=== PATIENT | female | born 1990 | race Asian ===

== ENCOUNTER 2017-10-07 23:48 | Inpatient (IN) ==
[2017-10-08] MEDS ORDERED: RINGER'S SOLUTION,LACTATED 1,000 ML IV ONE (00:05)
[2017-10-08] MEDS ORDERED: BUTORPHANOL TARTRATE 2 MG/ML VIAL IV PRN (00:05)
[2017-10-08] MEDS ORDERED: DEXTROSE 5%-LACTATED RINGERS 1,000 ML IV PRN (00:05)
[2017-10-08] MEDS ORDERED: ONDANSETRON HCL/PF 2 MG/ML VIAL IV PRN ×2 (00:05→13:49)
[2017-10-08] MEDS ORDERED: MISOPROSTOL 100 MCG TABLET VG PRN (00:05)
[2017-10-08] MEDS ORDERED: OXYTOCIN/DEXTROSE 5%-WATER 30 UNITS/500 ML BAG IV ONE ×2 (00:05→23:08)
[2017-10-08] MEDS: RINGER'S SOLUTION,LACTATED 1,000 ML IV PRN ×2 (05:18→14:20)
--- NOTE | 2017-10-08 08:56 | PN ---
Progess Note - Interim Date: 10/08/17 Time: 08:52 Narrative: 10/08/17 08:53 Subjective-feeling contractions and rating them 3-5 on a scale of 10 Objective- SVE- 3/80/-2, cephalic, towards the patient's left FHTs- 140s, moderate variability, positive accelerations, no decelerations [place]- every 2-5 minutes Assessment and plan- Labor-induction due to cholestasis of GBS status-negative Continue current plan of care.
--- NOTE | 2017-10-08 12:46 | PN ---
Progess Note - Interim Date: 10/08/17 Time: 12:45 Narrative: 10/08/17 12:45 Subjective-feeling contractions and rating them 3-5 on a scale of 10 Objective- SVE- 4/80/-2, cephalic, AROM-clear FHTs- 130s, moderate variability, positive accelerations, no decelerations [place]- every 2-5 minutes, on pitocin Assessment and plan- Labor-induction due to cholestasis of GBS status-negative Continue current plan of care.
[2017-10-08] MEDS ORDERED: BUPIVACAINE HCL/0.9 % NACL/PF 250 ML EP PRN (13:49)
[2017-10-08] MEDS ORDERED: NALOXONE HCL 1 MG/1 ML SYRG IV PRN (13:49)
--- NOTE | 2017-10-08 13:56 | OR ---
Anesthesia Pre Procedure Eval Date of Service: 10/08/17 Pre Procedure Evaluation: Anesthesia Pre Procedure Evaluation Heart Rate: 54 Blood Pressure: 134/80 Temperature: 36.5C Respiratory Rate: 20 SaO2: 98 DATE: 10/08/2017 TIME: 1355 INDICATIONS: Active labor, labor pain PAST MEDICAL HISTORY: Primipara patient in active labor requesting labor analgesia History of GERD: No History of smoking:No History of sleep apnea:No EXAM: Heart regular; lungs clear ASSESSMENT OF MEDICAL STATUS: Appropriate candidate for labor analgesia PLANNED PROCEDURE: Combination spinal epidural for labor analgesia Home Medications: HOME MEDICATIONS Ferrous Sulfate [Iron] 325 mg PO DAILY 10/08/17 [Last Taken 10/07/17] Vits96/Iron Fum/Folic [ S] 1 tab PO DAILY 10/08/17 [Last Taken 10/07/17 1 tab] Ursodiol [Actigall] 300 mg PO BID 10/08/17 [Last Taken 10/07/17 23:00]
[2017-10-08] MEDS ORDERED: fentaNYL CITRATE/PF 50 MCG/ML AMPUL IT SCH (14:00)
--- NOTE | 2017-10-08 14:18 | OR ---
Anesthesia Procedure Note - Anesthesia Procedure Note Date of Service: 10/08/17 Narrative: 10/08/17 14:17 ANESTHESIA PROCEDURE NOTE Date of Procedure: 10/08/2017 Time of procedure: 1355. Performed by: DENNIS Gomes CRNA, MSN Retirement Administrator: Katarina Cr RN. Preprocedure diagnosis: Active labor, labor pain. Post procedure diagnosis: Same. Procedure:Epidural for labor analgesia L3 4. Indications: Labor pain. Findings: See below. Details of the procedure: The patient was placed on the side of the bed in sitting positionand prepped with DuraPrep then draped in a sterile fashion. Lidocaine 1% was infiltrated to the skin and subcutaneous tissues at the level of the L3 4 interspace. An 18-gauge Touhy needle was used to approach the epidural space with loss of resistance technique. Once loss of resistance was achieved a 27-gauge spinal needle was passed through the epidural needle and CSF was contacted. After CSF returned, 20 mcg of fentanyl was injected in the spinal needle was removed the epidural catheter was then threaded approximately 4 cm in the epidural needle was removed. The catheter was taped in place and after careful aspiration 3 mL of 1.5% lidocaine with 1-200,000 epinephrine was injected without change in maternal heart rate or sensorium. . EBL: Minimal. Fluids: N/A. Specimen: N/A. Post procedure condition: The patient tolerated the procedure well with good relief. No complications were noted. Thank you for this consultation. Ramirez Irvin CRNA, ARNP, MSN
[2017-10-08] MEDS ORDERED: GLYCERIN/WITCH HAZEL LEAF 40 APPL BOX TP PRN (23:08)
[2017-10-08] MEDS ORDERED: BENZOCAINE/MENTHOL 81 SPRAY CAN TP PRN (23:08)
[2017-10-08] MEDS ORDERED: SENNOSIDES 8.6 MG TABLET PO PRN (23:08)
[2017-10-08] MEDS ORDERED: HYDROCORTISONE 30 APPL TUBE TP PRN (23:08)
[2017-10-08] MEDS ORDERED: BISACODYL 10 MG SUPP.RECT RC PRN (23:08)
[2017-10-08] MEDS ORDERED: oxyCODONE HCL/ACETAMINOPHEN 1 TAB TABLET PO PRN (23:08)
--- NOTE | 2017-10-08 23:11 | OR ---
Operative Report - Dictated Report Narrative: Spontaneous Vaginal Delivery Viable male with APGARS of 8 at 1 minute and 9 at 5 minutes. He delivered at 2251. Presentation was NAVNE[place]. A loose nuchal cord was noted around the neck and around the body. After delivery of the head the baby delivered easily without time to reduce the cord. Spontaneous cry was noted immediately. The baby was dried and the cord was clamped and cut after approximately 60 seconds. Weight: 5 pounds 6.2 ounces or 2444 g Placenta was delivered spontaneously and intact. First-degree vaginal laceration was noted and repaired with 2-0 Vicryl. Marked labial swelling was noted and bilateral periurethral lacerations were noted to be hemostatic. Estimated blood loss: 100 ml Mother and baby tolerated delivery well. History for Definition: * The number of deliveries resulting in a live the patient experienced prior to current hospitalization * The previous delivery of live twins or any live multiple gestation is considered one live event. *If primagravida or nulliparous is documented select zero for the number of previous live births. Live Events: 0
[2017-10-09] MEDS: IBUPROFEN 800 MG TABLET PO PRN ×2 (00:57→12:35)
[2017-10-09] MEDS: oxyCODONE HCL/ACETAMINOPHEN 1 TAB TABLET PO PRN ×4 (01:29→16:20)
[2017-10-09] MEDS ORDERED: diphenhydrAMINE HCL 25 MG CAPSULE PO PRN (03:09)
[2017-10-09] MEDS ORDERED: HYDROmorphone HCL 2 MG/ML VIAL IV ONE ×3 (03:10→19:20)
[2017-10-09] MEDS ORDERED: HYDROmorphone HCL 2 MG/ML VIAL ONE (05:01)
[2017-10-09] MEDS ORDERED: LIDOCAINE HCL 10 APPL CARTRIDGE ONE (05:50)
[2017-10-09] MEDS ORDERED: LIDOCAINE HCL 10 APPL CARTRIDGE TP ONE (05:53)
[2017-10-09] MEDS ORDERED: DOCUSATE SODIUM 100 MG CAPSULE PO SCH (09:00)
[2017-10-09] MEDS ORDERED: RINGER'S SOLUTION,LACTATED 1,000 ML IV ONE (09:13)
[2017-10-09 09:38] LABS: Hematocrit 25.5 % (37.0-47.0); Hemoglobin 8.7 gm/dL (12.5-16.0); Mean Cell Volume 93.8 fl (78-100); Mean Corpuscular Hgb Conc 34.1 g/dl (32-36); Mean Platelet Volume 12.3 fl (6.0-9.5); Neutrophil # 18.8 K/mm3 (1.3-6.0); Neutrophil % 84.2 % (42-75.0); Platelet Count 188 K/mm3 (150-450); Red Blood Count 2.72 M/mm3 (4.2-5.4); Red Cell Distribution Width 13.1 % (11.5-14.0); White Blood Count 22.4 K/mm3 (4.0-10.5)
--- NOTE | 2017-10-09 09:46 | PN ---
Progess Note - Interim Date: 10/09/17 Time: 08:30 Narrative: 10/09/17 09:37 Pt c/o severe rectal and buttock pain since delivery. She c/o pain 01/03. She has been up once but unable to void. Minimal bleeding. Some labial swelling. Lightheaded with ambulation. VSS Fundus firm left labia moderately swollen left buttock firm, swollen, probable hematoma, tender to touch A/P: Large hematoma-cont. to monitor, if cont. to expand, then will image. CBC and fluids. Pain control adjusted. Cont. to monitor closely. min. lochea
[2017-10-09] MEDS ORDERED: RINGER'S SOLUTION,LACTATED 1,000 ML IV PRN ×2 (13:29→19:17)
[2017-10-09 14:15] LABS: Mean Cell Volume 92.5 fl (78-100); Mean Corpuscular Hemoglobin 31.8 pg (27-31); Mean Corpuscular Hgb Conc 34.4 g/dl (32-36); Mean Platelet Volume 12.7 fl (6.0-9.5); Platelet Count 195 K/mm3 (150-450); Red Blood Count 2.39 M/mm3 (4.2-5.4); Red Cell Distribution Width 12.9 % (11.5-14.0); White Blood Count 24.2 K/mm3 (4.0-10.5)
[2017-10-09] MEDS ORDERED: HYDROmorphone HCL 2 MG TABLET PO PRN (15:17)
[2017-10-09 15:22] LABS: Hematocrit 22.1 % (37.0-47.0); Hemoglobin 7.6 gm/dL (12.5-16.0)
[2017-10-09 15:23] LABS: Total Cells Counted 100
[2017-10-09 15:26] LABS: Lymphocyte 12 % (20-51); Monocyte 5 % (0-9); Neutrophil 83 % (42-75); Neutrophil # 20.1 K/mm3 (1.3-6.0)
[2017-10-09 15:28] LABS: Hypochromia 2+; Platelet Estimate Normal (NORMAL)
--- NOTE | 2017-10-09 16:46 | PN ---
Progess Note - Interim Date: 10/09/17 Time: 12:30 Narrative: 10/09/17 1230 Pt is starting to feel better but still a lot of pain in her bottom Hematoma slowly expanding and outline made on skin. FF but abdomen tender and mildly distended Repeat H/H and follow closely If continues to expand, then consider imaging
--- NOTE | 2017-10-09 16:50 | PN ---
Progess Note - Interim Date: 10/09/17 Time: 16:46 Narrative: 10/09/17 16:46 Pt c/o bottom pain. Denies abdominal pain. Does not have much of an apetite. Tolerating pain medication. VSS Hematoma continues to slowly expand Labial edema stable Abdomen, unchanged A/P: Anemia: h/h decreased, reassess tomorrow Hematoma slightly worsened, discussed with radiology for CT scan Pain: tolerable with po meds SCDs Cont. close monitoring
[2017-10-09 18:38] LABS: Mean Cell Volume 93.5 fl (78-100); Mean Corpuscular Hemoglobin 31.9 pg (27-31); Mean Corpuscular Hgb Conc 34.1 g/dl (32-36); Mean Platelet Volume 12.6 fl (6.0-9.5); Platelet Count 194 K/mm3 (150-450); Red Blood Count 2.32 M/mm3 (4.2-5.4); White Blood Count 24.4 K/mm3 (4.0-10.5)
[2017-10-09 19:00] LABS: Hemoglobin 7.4 gm/dL (12.5-16.0)
[2017-10-09 19:01] LABS: Hematocrit 21.7 % (37.0-47.0); Total Cells Counted 100
[2017-10-09 19:11] LABS: Lymphocyte 21 % (20-51); Monocyte 6 % (0-9); Neutrophil 73 % (42-75); Neutrophil # 17.8 K/mm3 (1.3-6.0)
[2017-10-09 19:12] LABS: Platelet Estimate Normal (NORMAL)
[2017-10-09] MEDS ORDERED: ENOXAPARIN SODIUM 80 MG/0.8 ML DISP.SYRIN SC ONE (19:14)
[2017-10-09] MEDS ORDERED: ENOXAPARIN SODIUM 100 MG/ML SYRG SC ONE (19:26)
[2017-10-09 19:39] VITALS: BP 151/84
--- NOTE | 2017-10-09 19:40 | PN ---
Subjective - Date and Time Seen Date: 10/09/17 Time: 19:22 Objective - Vitals Vitals: Last Vital Signs Temp 36.3 C L 10/09/17 12:37 Pulse 99 10/09/17 15:37 Resp 18 10/09/17 15:37 BP 134/62 10/09/17 15:37 Pulse Ox 100 10/09/17 15:37 Presented to L&D for building construction estimator and received phone results from the radiologist building construction estimator regarding this patient. I was told she has an expanding pelvic hematoma extending into the paravaginal and pararectal space. Lower abdomen is filled with fluid and clotted blood and appears to have active bleeding. The uterus is enlarged and filled with blood. Patient has positive orthostatic pulse but not BP. Her Hg has not changed significantly from 1400 today. The vaginal canal is completely closed from a left sided hematoma. I placed a 24fr munoz catheter into the vagina/uterine cavity to attempt to drain the uterus in case the intraabdominal bleeding was backpressure from the uterus. Only a few ml drained. Called [facility] Dr building construction estimator, Melisa Goodwin, who agrees to accept transfere. Will give one unit of PRBCs and 1 liter of LR at 999 ml/hr en route to assure patient remains stable. The r/b/a have been discussed with the patient, , and parents. They agree with transfer. Because of potential for severe morbidity, will transfer via Air[facility] to avoid long delay in evaluation/treatment of patient. - Abnormal Lab Findings Abnormal Lab Findings: Abnormal Lab Results 10/09/17 10/09/17 10/09/17 Range/Units 09:34 14:06 18:37 WBC 22.4 H 24.2 H 24.4 H (4.0-10.5) K/mm3 RBC 2.72 L 2.39 L 2.32 L (4.2-5.4) M/mm3 Hgb 8.7 L 7.6 L* 7.4 L* (12.5-16.0) gm/dL Hct 25.5 L 22.1 L* 21.7 L* (37.0-47.0) % MCH 32.0 H 31.8 H 31.9 H (27-31) pg MPV 12.3 H 12.7 H 12.6 H (6.0-9.5) fl Immature Gran % (Auto) 1.30 H (0.001-0.429) % Immature Gran # (Auto) 0.28 H (0.000-0.0310) K/mm3 Neutrophils % 84.2 H (42-75.0) % Neutrophils % (Manual) 83 H (42-75) % Lymphocytes % 11.3 L (20-51) % Lymphocytes % (Manual) 12 L (20-51) % Neutrophils # 18.8 H (1.3-6.0) K/mm3 Neutrophils # (Manual) 20.1 H 17.8 H (1.3-6.0) K/mm3 Lymphocytes # (Manual) 5.1 H (1.5-3.5) k/mm3 Monocytes # (Manual) 1.2 H 1.5 H (0.0-1.0) k/mm3 Cauti Physician Documentation - Urinary Catheter Management Urethral (Munoz) Date of Insertion: 10/08/17 Time of Insertion: 14:50
[2017-10-10] MEDS ORDERED: ENOXAPARIN SODIUM 80 MG/0.8 ML DISP.SYRIN SC SCH (19:00)
== END 2017-10-09 19:46 | disposition short-term general hospital (02) | DRG 775 ==
LOC: OB 23:48 → UNDOADMIN 23:48 → OB 10-08 00:01
PROVIDERS: ADMIT Obstetrics & Gynecology Gynecologic Oncology; ATTEND Obstetrics & Gynecology Gynecologic Oncology
DX: O69.81X0 Labor and delivery complicated by cord around neck, without compression, not applicable or unspecified; Z37.0 Single live birth; O90.81 Anemia of the puerperium; K83.1 Obstruction of bile duct; O71.7 Obstetric hematoma of pelvis; D62 Acute posthemorrhagic anemia; Z3A.37 37 weeks gestation of pregnancy; O26.62 Liver and biliary tract disorders in childbirth; O70.0 First degree perineal laceration during delivery
CPT/HCPCS: 36415; 59025; 72170; 72220; 74176; 85007; 85025; 86850; 86900; P9016